=== PATIENT | female | born 1990 | race Caucasian/White ===

== ENCOUNTER 2019-06-02 17:15 | Emergency (ER) | payer OTHER ==
[~2019-06-02 17:15] MED LIST: ISOVUE-370 76%-LOCM 1 ML ONE
[2019-06-02] MEDS ORDERED: Dexamethasone 10 MG/ML VIAL ONE (17:47)
[2019-06-02 17:58] LABS: BHCG - Serum Negative (NEGATIVE); Pregs Control Background? CLEAR/WHITE (CLR/WHITE); Pregs Control Bar Appear? YES (CONTROL BAR)
[2019-06-02] MEDS ORDERED: Morphine 2 MG/ML SYRINGE ONE (19:10)
--- NOTE | 2019-06-02 19:56 | CT ---
Exam: Postcontrast soft tissue neck CT HISTORY: New onset of pain. History of neck surgery. Pain starts at the top the neck and goes down to the back and shoulders. Sore throat. FINDINGS: Adequate contrast enhancement the visualized brain parenchyma. Bilateral ocular lenses have appropriate appearance and location. Both globes are intact. Retrobulbar fat is preserved. Symmetric attenuation of the optic nerves and ocular rectus muscles. Adequate aeration of the sinuses and mastoid air cells. Symmetric attenuation of the parotid and submandibular glands. Symmetric attenuation of the sternocleidomastoid muscles. No evidence of lymphadenopathy by size criteria in the left or right neck. There are a few scattered borderline bilateral level 2 lymph nodes. Unremarkable left thyroid lobe. 4 mm hypodensity in the right thyroid lobe. Nonemergent thyroid ultra sound is recommended. Aerodigestive tract is patent. No mucosal abnormality. Midline fatty raphae of the tongue is preserve d. Epiglottis is normal caliber. The glottic fat is preserved. Upper mediastinum and lung apices are unremarkable. Cervical spine vertebral body height is maintained. No fracture. No significant central canal stenosis or significant neural foraminal narrowing. No evidence of a peritonsillar abscess or prevertebral soft tissue swelling. IMPRESSION: 1. Unremarkable postcontrast soft tissue neck CT. No evidence of a soft tissue neck infection, perito nsillar abscess or prevertebral soft tissue swelling. 2. Incidental right thyroid lobe nodule. Nonemergent thyroid ultrasound. Results study discussed with Dr. Tate 06/02/2019 at 7:52 PM Code CR Transcribed Date/Time: 06/02/2019 8:21 PM
[2019-06-02] MEDS ORDERED: Ketorolac Tromethamine 30 MG/ML VIAL ONE (19:58)
[2019-06-02 20:39] LABS: #Eosinphils 0.1 thou/uL (0.0-0.7); #Lymphocytes 1.8 thou/uL (1.20-3.40); #Monocytes 0.5 thou/uL (0.11-0.59); #Neutrophils 4.4 thou/uL (1.40-6.50); %Basophils 0.2 % (0.0-1.0); %Eosinophils 1.9 % (0.0-10.0); %Lymphocytes 26.6 % (21.0-51.0); %Neutrophils 64.4 % (42.0-75.0); Hemoglobin 13.9 g/dL (12.0-16.0); Mean Corpuscular HGB CONC 33.6 g/dL (32.0-36.0); Mean Corpuscular Hemoglobin 31.9 pg (27.0-31.0); Mean Platelet Volume 7.8 fL (7.4-10.4); Platelet Count 309 thou/uL (130-400); RBC Distribution Width 11.2 % (11.5-14.5); Red Blood Cell (RBC) Count 4.35 mill/uL (4.20-5.40); White Blood Cell (WBC) Count 6.8 thou/uL (4.8-10.8)
[2019-06-02 21:10] LABS: ALT (SGPT) 13 U/L (8-55); AST (SGOT) 15 U/L (5-34); Albumin 4.6 g/dL (3.5-5.0); Alkaline Phosphatase 33 U/L (40-150); Anion Gap 13 mmol/L (10-20); BUN (Urea Nitrogen) 9 mg/dL (7.0-18.7); Bilirubin, Total 0.4 mg/dL (0.2-1.2); Calc. Creatinine Clearance 0 mL/min (70-130); Calcium 9.4 mg/dL (7.8-10.44); Carbon Dioxide 24 mmol/L (22-29); Chloride 106 mmol/L (98-107); Estimated GFR-MDRD 87; Globulin 3.1 g/dL (2.4-3.5); Glucose 71 mg/dL (70-105); Potassium 3.6 mmol/L (3.5-5.1); Protein, Total 7.7 g/dL (6.0-8.3); Sodium 139 mmol/L (136-145)
[2019-06-02] MEDS ORDERED: Diazepam 5 MG TAB ONE (21:22)
== END 2019-06-02 22:28 | disposition home or self-care (01) ==
LOC: ERS 17:15
DX: E04.1 Nontoxic single thyroid nodule (principal)
CPT/HCPCS: 70491; 80053; 84703; 85025; 96374; 96375; J1100; J1885; J2270; Q9966

== ENCOUNTER 2019-06-10 14:48 | Emergency (ER) | payer OTHER ==
--- NOTE | 2019-06-10 16:49 | CT ---
CT head noncontrast HISTORY: Difficulty swallowing. Headache. Right arm pain. FINDINGS: There is no evidence of acute intracranial hemorrhage or infarct. The ventricles appear nor mal in size, shape and position. There is no mass effect or shift of midline structures. Visualized paranasal sinuses remain well aerated. IMPRESSION: No acute intracranial abnormalities are demonstrated.
[2019-06-10] MEDS ORDERED: HYDROcodone/Acetaminophen 5/325 mg Tablet ONE (17:51)
[2019-06-10] MEDS ORDERED: Ketorolac Tromethamine 60 MG/2 ML VIAL ONE (18:56)
[2019-06-10] MEDS ORDERED: predniSONE 20 MG TAB ONE (22:08)
== END 2019-06-10 22:10 | disposition home or self-care (01) ==
LOC: ERS 14:48
DX: E04.1 Nontoxic single thyroid nodule (principal); M54.2 Cervicalgia; M79.601 Pain in right arm; R20.0 Anesthesia of skin
CPT/HCPCS: 36415; 70450; 84443; 96372; J1885; J7512